=== PATIENT | female | born 1945 | race Caucasian/White ===

== ENCOUNTER → 2017-01-11 | Outpatient (CLI) | payer OTHER ==
[~2017-01-11] MED LIST: ASPIRIN325 PO; B COMPLEX-VITA1 EACH PO; CALCIUM 500 +1 EAC5 PO; COLACE100 MG PO; FISH OIL 1,4001 EACH PO; IBUPROFEN 200200 M1; MAGNESIUM400 MG PO; PREDNISONE 10 M10 M1 PO; PRINZIDE 20-121 EACH PO; SIMVASTATIN40 MG PO; TOPROL XL25 MG PO; TRIAMTERENE-HC1 EAC1 PO; TUMS; VALIUM10 MG PO; VITAMIN C120 GM PO; VITAMIN D1000 UNI1 PO
--- NOTE | ~2017-01-11 | MCT ---
[facility] [place] [address] [place] [address] METHACHOLINE CHALLENGE TEST Name: KYARA WALTON Room #: REG RA Osullivan#: [id number] Admission: 01/11/17 Attend Phys: Junaid Mayfield MD Discharge: Date of : 47 Report #: [id number] THIS REPORT FOR: //name// COPIES FOR: AGE: 71 SEX/RACE: F/C Height: 66 in Exam Date: 01/11/17 Weight: 160 lbs BTPS: X >> PRE BRONCHODILATOR: PREDICTED BEST %PRED FORCED VITAL CAPACITY (FRC) 3.08 L 3.37 LPM 109 % FORCED EXP VOL/SEC (FEV1) 2.43 L 2.48 FEV/FVC 102 % MAX MID-EXP FLOW (FEF 25-75) 2.47 L/SEC 2.06 L/SEC 83 % PEAK EXP FLOW RATE (FEF MAX) 5.73 L/MIN 5.59 L/MIN MED-VC RATIO (FEF 50/FEF 50) .09 98 Baseline: Phenol Saline Level 1: 0.025 mg/ml BEST %PRED %CHANGE BEST %PRED %CHANGE FVC 3.51 L 114 % 4 % FVC 3.45 L 112 % -2 % FEV1 2.51 L 103 % 1 % FEV1 2.52 L 104 % 1 % Level 2: 0.25 mg/ml Level 3: 2.5 mg/ml BEST %PRED %CHANGE BEST %PRED %CHANGE FVC 3.59 L 117 % 2 % FVC 3.38 L 110 % -4 % FEV1 2.57 L 106 % 2 % FEV1 2.34 L 96 % -7 % . Level 4: 10 mg/ml Level 5: 25 mg/ml BEST %PRED %CHANGE BEST %PRED %CHANGE FVC 3.50 L 113 % -0 % FVC 3.37 L 109 % -4 % FEV1 2.43 L 100 % -3 % FEV1 2.41 L 99 % -4 % Post Bronchodilator: 1st Treatment Post Bronchodilator: 2nd Treatment BEST %PRED %CHANGE BEST %PRED %CHANGE FVC 3.44 L 112 % -2 % FVC L % % FEV1 2.47 L 102 % -2 % FEV1 L % % Post Bronchodilator: 3rd Treatment BEST %PRED %CHANGE [facility] [address] [place] [address] METHACHOLINE CHALLENGE TEST Name: KYARA WALTON Room #: REG [facility].#: [id number] Admission: 01/11/17 Attend Phys: Junaid Mayfield MD Discharge: Date of : 46 Report #: [id number] FVC L % % FEV1 L % % >> INTERPRETATION: CC: America Mayfield MD AMENDED REPORT - SEE BELOW METHACHOLINE CHALLENGE TEST IMPRESSION: Negative, never reaching PC20. AMENDED - 01/18/17 REPORT ORIGINALLY E.SIGNED - 01/16/17 @ 1100 Report was edited to add pulmonary values. <ELECTRONICALLY SIGNED> By: Eliel Sinclair MD 01/20/17 1359 Eliel Sinclair MD /nt
== END ==
LOC: PUL 10:07
DX: R53.83 Other fatigue (principal); R06.00 Dyspnea, unspecified

== ENCOUNTER → 2018-08-29 | Outpatient (CLI) | payer OTHER ==
[~2018-08-29] VITALS: Ht 167.6 cm; Wt 72.6 kg
[~2018-08-29] MED LIST changes: +APAP650 PO; +DICLOFENAC POTA50 MG PO; +LISINOPRIL20 MG PO; +NAPROSYN500 MG PO; +NORVASC5 MG PO; +SPIRIVA INH; +TURMERIC 500 M1 EACH PO; +VENTOLIN HFA 1818 GM INH; +ZETIA10 MG PO; +ZOLOFT50 MG PO
--- NOTE | ~2018-08-29 | HPC ---
[facility] [place] [address] PAIN MANAGEMENT CONSULTATION Name: KYARA WALTON Room #: REG [facility].#: [id number] Admission: 08/29/18 Attend Phys: Roland Coto DO Discharge: Date of : 46 Report #: [id number] THIS REPORT FOR: //name// CC: Roland Villegas DATE OF SERVICE: 08/29/2018 REFERRING PHYSICIAN: Dr. Vijay Villegas. CHIEF COMPLAINT: Cervicalgia. HISTORY OF PRESENT ILLNESS: As you know, the patient is a 73-year-old female who has been suffering from chronic neck pain that began earlier in 2018 and progressively worsened. She sought evaluation through her primary care physician, Dr. Vijay Villegas who sent her for x-ray imaging. X-ray imaging showed some arthritic changes in the cervical spine and she was afraid she was suffering from spinal stenosis of the cervical region and sent to our clinic. The patient has neck pain, but no radiation of symptoms from the cervical region. She has discrete numbness and tingling that begins at the wrist and radiates into both hands, more indicative of carpal tunnel. She was sent to our clinic. Discussed the possibility of interventional treatments. Today, the patient indicates pain is continuous, steady and constant, describes the pain as aching, sharp, numbness and tingling and tender, places current pain score 5/10, daily average of 5-6/10, worst pain has been is 6/10. The patient states that turning her head exacerbates her neck pain with no radiation of symptoms to the shoulders or the upper extremities. Driving also exacerbates neck pain. She states that pain is elicited with use of her right and left upper extremity, specifically the hands for both gross and fine motor movement. She states that naproxen, Tylenol and decreasing mobility and repetitive motion tends to improve pain. She has been referred to our service for evaluation. PAST MEDICAL HISTORY: 1. Hypertension. 2. Severe COPD requiring pulmonary rehabilitation. 3. Degenerative joint disease. 4. Osteoarthritis. 5. Depression. 6. Dyslipidemia. 7. Anxiety disorder. PAST SURGICAL HISTORY: Excision of basal cell carcinoma from the nose. [facility] [address] [place] [address] PAIN MANAGEMENT CONSULTATION Name: KYARA WALTON Room #: REG [facility]#: [id number] Admission: 08/29/18 Attend Phys: Roland Coto DO Discharge: Date of : 46 Report #: [id number] SOCIAL HISTORY: The patient reports herself a nonsmoker. Denies IV or illicit drug use. Admits to 2 alcohol beverages per day. 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 She is not color worker's compensation nor is she trying to obtain disability benefits. She is unaccompanied at today's visit. REVIEW OF SYSTEMS: Positive for fatigue and weakness, wearing corrective eyewear, cataracts, hearing loss with tinnitus, shortness of breath with walking or lying flat, numbness and tingling sensations, depression, heat and cold intolerance, bleeding and bruising tendencies, neck pain, bilateral hand pain. All other review of systems negative per 12-point review of systems other than those listed in the history of present illness. Pain impact score 26/70 indicating mild to moderate interference of daily activities secondary to pain. ALLERGIES: HYDROCODONE AND ACETAMINOPHEN. CURRENT MEDICATIONS: Turmeric extract 500 mg once a day, acetaminophen 650 mg twice a day, naproxen 500 mg twice a day, sertraline 50 mg once a day, lisinopril 20 mg 2 tabs per day, amlodipine 5 mg once a day, Zetia 10 mg once a day, albuterol 2 puffs q. 4 hours p.r.n. wheezing, ipratropium bromide once a day, aspirin 325 mg per day, omega-3 fish oil 1 tab per day, vitamin B complex 1 tab per day, metoprolol 25 mg per day, diazepam 10 mg at bedtime. IMAGING: X-ray of the cervical spine shows C2-C3 unremarkable, C3-C4 intervertebral disk space and endplates are normal, moderate facet arthropathy, moderate left neural foraminal encroachment. C4-C5, mild disk space narrowing, facet arthropathy, mild bilateral neural foraminal narrowing. C5-C6, moderate intervertebral disk space narrowing, moderate facet arthritis, moderate bilateral neural foraminal narrowing. C5-C6, moderate intervertebral disk space narrowing, facet arthropathy noted that is mild, mild to moderate foraminal narrowing, left greater than right. C7-T1 unremarkable. PQRS: The patient has known osteoarthritis of the cervical spine. She does not have rheumatoid arthritis. She is placing pain intensity 5/10. She is not a fall risk, does not have a fall in the last 3 months. She is not on blood thinners. She is treated for hypertension. She is not on opioids. She has a low opioid addiction potential. Pain impact score indicated as 27/70. PHYSICAL EXAMINATION: VITAL SIGNS: Blood pressure 130/73, pulse 71, respiratory rate 16 and unlabored. The patient is 100% on room air. Height 5 feet 6 inches tall, weight 160 pounds, BMI calculated 25.8. GENERAL: Well-developed, well-nourished, well-hydrated 73-year-old female appearing stated age, placing current pain score around 5/10. [facility] [address] [place] [address] PAIN MANAGEMENT CONSULTATION Name: KYARA WALTON Room #: REG RA Abran#: [id number] Admission: 08/29/18 Attend Phys: Roland Coto DO Discharge: Date of : 46 Report #: [id number] HEENT: Normocephalic, atraumatic. Pupils equal, round, reactive to light. Extraocular muscles are intact. Sclerae nonicteric without injection. NEUROLOGIC: Cranial nerves 2 through 12 grossly intact. Speech is fluent. The patient deemed a fair historian. LUNGS: Decreased breath sounds bilaterally. There is a prolonged expiratory phase. CARDIOVASCULAR: Regular. No appreciable gallop, no rub. ABDOMEN: Soft, nontender, nondistended, normoactive bowel sounds. EXTREMITIES: Show no clubbing, no cyanosis, no edema. MUSCULOSKELETAL: There is some palpatory tenderness noted over the paraspinal musculature of the cervical spine, no spinous process tenderness. Cervical rotation, lateral flexion cause intensification of neck pain, no radiation of symptoms. Spurling test negative. Upper extremity strength is symmetrical 5/5, intact to light touch from C5 through T1 dermatomes with the exception of the bilateral hands over the first, second, third and fourth digits bilaterally with reduction of tactile sensation. Plug Stitcher strength appears normal in both hands. Muscle bulk and tone equal and symmetrical in upper extremities. Deep tendon reflexes are symmetrical biceps, brachialis and triceps. Tinel's sign is strongly positive bilaterally. Phalen's sign mildly strong bilaterally. ASSESSMENT: 1. Cervical spondylosis without radiculopathy. 2. Myofascial pain of the cervical spine. 3. Cervicalgia. 4. Bilateral carpal tunnel syndrome. PLAN: 1. Based on today's physical exam and history the patient has provided, the description the patient uses in regards to pain as well as the lack of any radiation of symptoms from the cervical region and only discrete tenderness to palpation in the cervical spine, the likely source of the patient's neck pain is facet arthropathy. The x-ray findings do show some arthritic changes, which correlate with the patient's current pain around the C5-C6, C6-C7 level. The patient's provocating testing shows cervical facet degenerative pain, but no radicular component. She was advised that she has cervical spinal stenosis, though this cannot be determined on an x-ray image. There is some neural foraminal encroachment that may be leading to some neural foraminal stenosis, though to determine if the patient is suffering from any cervical spinal stenosis, imaging of either CT or MRI would be necessary. We did discuss with the patient the treatment options for her cervicalgia secondary to facet arthropathy, and the following was discussed. We discussed physical therapy, stretching exercises and traction techniques. This has not been trialed by the patient, and I recommended strongly before moving on with more aggressive treatment options. We discussed medication management adding a nonsteroidal anti-inflammatory for improvement in symptoms. [address] [address] PAIN MANAGEMENT CONSULTATION Name: KYARA WALTON Room #: REG RA Osullivan#: [id number] Admission: 08/29/18 Attend Phys: Roland Coto DO Discharge: Date of : 46 Report #: [id number] This in conjunction with physical therapy would be quite beneficial. We discussed more aggressive treatment options such as intra-articular facet injections, which will provide only transient improvement in symptoms and we discussed radiofrequency lesioning of the medial branch nerves of the cervical spine, which is not offered through [facility]. After reviewing the risks and benefits of all proposed treatment options, the patient chose nonsteroidal anti-inflammatory and physical therapy. 2. The patient was provided a prescription of diclofenac 50 mg dose 1 tab p.o. t.i.d. with meals, I have given the patient #90. She is to discontinue naproxen in preference to this diclofenac. We wish to determine if her symptoms might see improvement with rotating a nonsteroidal anti-inflammatory. She has been on naproxen for an extended period of time. The patient will be sent for physical therapy twice a week for 6 weeks. We have requested typical cervical physical therapy in conjunction with traction, heat and cold compresses, ultrasound therapy to improve neck discomfort. She can begin this as quickly as possible. 3. We did discuss possibility of having the patient undergo MRI of the cervical spine. We will trial conservative treatment options first. If this does not prove to provide good benefit, further imaging might be necessary and I would recommend a cervical MRI as this will provide us with information about the central canal and neural foraminal areas. 4. Bilateral hand pain, appears to be related to bilateral carpal tunnel syndrome. There is no radicular component to the patient's cervical symptoms and the findings on her x-ray do not correlate with the distribution in her hands. The distribution is from the wrist into the hands specifically. She has strongly positive Tinel's sign and mildly positive Phalen's sign indicative of carpal tunnel syndrome. The fact that her distribution does not involve the thumb would be most indicative of a noncervical radicular origin and thus would further confirm bilateral carpal tunnel syndrome. We discussed the treatment options for this today including decreasing repetitive motion, utilize cock-up splints on a nightly basis bilaterally. We discussed carpal tunnel release surgery. After reviewing risks and benefits of all the proposed treatment options, the patient chose to remain conservative and wishes to trial reducing gross and fine motor movements as much as possible initially to see if improvement can occur and then utilizing a cock-up splint on the evening basis. If this is ineffective, then she will consider options for surgery. 5. We will see the patient back in followup visit after she has completed physical therapy for her cervical region. We will see her back and discuss the carpal tunnel syndrome further if she wishes to do so. We wish to thank Dr. Villegas for the referral of this patient to our clinic. We will keep you apprised of her response to treatment as we address her cervicalgia secondary to facet arthropathy of cervical spine and her carpal [address] [address] PAIN MANAGEMENT CONSULTATION Name: KYARA WALTON Room #: REG [facility].#: [id number] Admission: 08/29/18 Attend Phys: Roland Coto DO Discharge: Date of : 46 Report #: [id number] tunnel syndrome. Again, we wish to thank you for the opportunity to see the patient in consultation. <ELECTRONICALLY SIGNED> By: Roland Coto DO 09/05/18 1059 [id number] Roland Coto DO /nt
[2018-08-29 11:11] VITALS: BP 130/73
== END ==
LOC: PAIN 06:51
DX: M47.812 Spondylosis without myelopathy or radiculopathy, cervical region (principal); M79.18 Myalgia, other site; G56.03 Carpal tunnel syndrome, bilateral upper limbs; Z79.899 Other long term (current) drug therapy

== ENCOUNTER → 2018-09-26 | Outpatient (CLI) | payer OTHER ==
[~2018-09-26] VITALS: Ht 167.6 cm; Wt 75.1 kg
[~2018-09-26] MED LIST changes: +SPIRIVA RESPIMAT4 GM
--- NOTE | ~2018-09-26 | HPC ---
[facility] [place] [address] [place] [address] PAIN MANAGEMENT CONSULTATION Name: KYARA WALTON Room #: REG [facility].#: [id number] Admission: 09/26/18 Attend Phys: Roland Coto DO Discharge: Date of : 46 Report #: [id number] THIS REPORT FOR: //name// CC: Roland Villegas MD DATE OF SERVICE: 09/26/2018 CHIEF COMPLAINT: Cervicalgia. HISTORY OF PRESENT ILLNESS: As you know, the patient is a 73-year-old female who has been suffering from chronic neck pain began early 2017 and progressively worsened. She was evaluated by her primary care physician, Dr. Vijay Villegas, referred to our clinic to discuss treatment options for cervicalgia. She was seen per the request of Dr. Vijay Villegas on 08/29/2018. At that time, diagnosed with cervical spondylosis without radiculopathy, myofascial pain of the cervical spine, cervicalgia and bilateral carpal tunnel syndrome. At that visit, we discussed multiple treatment options including physical therapy, medication management changes, utilizing a consistent nonsteroidal anti-inflammatory to address facet arthropathy pain. We discussed intra-articular injections and radiofrequency lesioning of the cervical spine, which is not offered by our services. After reviewing the risks and benefits of all proposed treatment options, the patient chose to begin with medication management. She returns today in followup visit reporting pain score of about 2-3/10. She is extremely pleased with response to medication, returning today for refills of therapy. She is denying side effects of dyspepsia, worsening blood pressure, lower extremity edema with the use of the diclofenac. She returns requesting refill for the next 3 months as she is finding good benefit with its use. She does indicate that she has not initiated the use of the cock-up splints for her carpal tunnel, though I recommended strongly ALLERGIES: HYDROCODONE/ACETAMINOPHEN. CURRENT MEDICATIONS: Spiriva 1 puff b.i.d., diclofenac 50 mg 3 times a day, turmeric 500 mg once a day, acetaminophen 650 mg q.12h., sertraline 50 mg per day, lisinopril 20 mg per day, amlodipine 5 mg p.o. at bedtime, Zetia 10 mg per day, albuterol 2 puffs q.4h. p.r.n., aspirin 325 mg per day, omega-3 fish oil 1 tab per day, vitamin B complex 1 tab per day, metoprolol 25 mg once a day, diazepam 10 mg p.o. at bedtime. SOCIAL HISTORY: The patient reports herself a nonsmoker. Denies IV or illicit drug use. Admits to 2 alcohol beverages per day. 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 [address] PAIN MANAGEMENT CONSULTATION Name: KYARA WALTON Room #: REG [facility].#: [id number] Admission: 09/26/18 Attend Phys: Roland Coto DO Discharge: Date of : 46 Report #: [id number] IMAGING: There is no new imaging available. PQRS: The patient has osteoarthritis of cervical spine, no rheumatoid arthritis. She is placing pain intensity day 2-3/10, not a fall risk, has not had a fall in the last 3 months. She is not on blood thinners. She is treated for hypertension. She is not on opioids and has a low opioid addiction potential. Pain impact score reporting 21 of 70, mild interference of daily activities secondary to pain. PHYSICAL EXAMINATION: VITAL SIGNS: Blood pressure 132/67, pulse 76, respiratory rate 14 and unlabored. The patient is 100% on room air. Height 5 feet 6 inches tall, weight 165.6 pounds, BMI calculated 26.7. GENERAL: Well-developed, well-nourished, well-hydrated 73-year-old female appearing stated age, pain is rated around 2-3/10. HEENT: Normocephalic, atraumatic. Pupils equal, round, reactive to light. Extraocular muscles are intact. EXTREMITIES: Show no clubbing, no cyanosis, no edema. MUSCULOSKELETAL: The patient remains tender to palpation over the paraspinal musculature of cervical spine, no spinous process tenderness. Cervical rotation, lateral flexion intensifies neck pain, no radiation of symptoms with extension. Spurling's test negative. ASSESSMENT: 1. Cervical spondylosis without radiculopathy. 2. Myofascial pain, cervical spine. 3. Cervicalgia. 4. Bilateral carpal tunnel syndrome. PLAN: 1. The patient returns today in followup visit indicating that she has not initiated treatment with the cock-up splints recommended at last visit. She states she has purchased these splints, but has not begun to use them. This is the most conservative and one of the most effective treatment options for mild carpal tunnel syndrome for which the patient is experiencing. Recommend strongly she initiate the therapy. Certainly, referrals to physical therapy can be made either through her PCP or through our services, though I do not feel these are necessary. At this time, cock-up splints would be most appropriate. The patient can discuss the carpal tunnel syndrome that she is experiencing with her current physical therapy professional addressing her cervicalgia. 2. In regards to the patient's cervicalgia, she is doing well with diclofenac and physical therapy. At this point, no interventions are necessary. We recommend she remain on the diclofenac 50 mg t.i.d. She can follow up with the PCP for continuation of this treatment. 3. The patient was provided a prescription of diclofenac potassium 50 mg dose 1 tab p.o. t.i.d., #90 with 2 refills, 3 months' worth of medication. She can [facility] [address] [place] [address] PAIN MANAGEMENT CONSULTATION Name: KYARA WALTON Room #: REG [facility]#: [id number] Admission: 09/26/18 Attend Phys: Roland Coto DO Discharge: Date of : 47 Report #: [id number] again follow up with PCP or her presser and blocker knitted goods for continuation of this treatment. 4. If the patient is looking to move forward with interventional treatments, we have recommended that she contact her referring physician to be referred to a facility that offers radiofrequency lesioning of the medial branch nerves of the cervical spine. I believe if her symptoms do continue to worsen that this would be the most appropriate option for treatment. 5. We will see the patient back in followup visit on an as needed basis. Pleased to see the patient is doing well. We will see her back if necessary. By: [id number] Roland Coto, DO /nt
[2018-09-26 10:11] VITALS: BP 132/67
== END ==
LOC: PAIN 07:12
DX: M54.2 Cervicalgia (principal); M54.5 Low back pain; M79.602 Pain in left arm; M79.601 Pain in right arm; Z79.899 Other long term (current) drug therapy; Z72.89 Other problems related to lifestyle

== ENCOUNTER → 2019-02-04 | Outpatient (CLI) | payer OTHER | LOC: RAD 11:54 | DX: J44.9 Chronic obstructive pulmonary disease, unspecified (principal); M51.34 Other intervertebral disc degeneration, thoracic region ==

== ENCOUNTER → 2019-09-24 | Outpatient (CLI) | payer OTHER ==
[~2019-09-24] VITALS: Ht 165.1 cm; Wt 77.1 kg
[~2019-09-24] MED LIST changes: +ANORO ELLIPTA1 EACH INH; +BENADRYL25 MG PO; +FLUZONE HI180 MCG/06 IM; +NEURONTIN 300300 M1 PO; +SUPER THERAVIT1 EACH PO
[2019-09-24 13:14] VITALS: BP 144/69
--- NOTE | 2019-09-24 13:35 | NUR ---
Pain Clinic Assessment: 1. History of Osteoarthritis: Left Lower Extremity Right Lower Extremity History of Rheumatoid Arthritis: 2. Height: 5 ft. 5 in. 165.1 cm. Weight: 170.0 lb. oz. 77.112 kg. Patient's BMI: 28.3 3. Vital Signs: BP: 144/69 Pulse: 75 Resp: 16 Temp: 02 Sat: 98 ECG Mon: 4. Pain Intensity: 2-3 5. Fall Risk: Dizziness: Y Needs help standing or walking: N Fallen in the last 3 months: N Fall risk comments: 6. Patient on Blood Thinner: None 7. History of Hypertension: Y 8. Opioid Therapy greater than 6 weeks: N Opiate Contract Signed: 9. Risk Assessment Tool Provided: 10. Functional Assessment Tool: 11. Recreational Drug Use: Never Drug Type: Tobacco Use: Never Smoker Tobacco Type: Amount or Packs/day: How Many Years: Alcohol Use: Yes Frequency: Daily Quant: 2
--- NOTE | 2019-10-01 13:04 | HPC ---
[facility] [place] [address] PAIN MANAGEMENT CONSULTATION Name: KYARA WALTON Room #: REG [facility]#: [id number] Admission: 09/24/19 Attend Phys: Roland Coto DO Discharge: Date of : 47 Report #: [id number] THIS REPORT FOR: //name// CC: Roland Villegas MD DATE OF SERVICE: 09/24/2019 CHIEF COMPLAINT: Low back pain, bilateral lower extremity pain with paresthesias. HISTORY OF PRESENT ILLNESS: As you know, the patient is a very pleasant 74-year-old female who returns today in followup visit per the request of her primary care physician, Dr. Vijay Villegas for evaluation for low back pain, bilateral lower extremity pain. The patient reports that Dr. Villegas contacted her and indicated that she had some minor changes in the lumbar spine at several levels causing mild nerve root impingement. She was referred back to our clinic to discuss treatment options based on these reports. She indicates today pain is periodic, aching, and tender. She describes the pain as exacerbated with standing and bending, improves with sitting and lying down. She is placing pain today around 2-3/10. She returns today with a new MRI dated 09/11/2019, which shows severe central canal stenosis at L3-L4 and L4-L5 with central canal measuring only 6 mm at the L3-L4 level and 5-6 mm at the L4-L5 level. This would correlate with the patient's bilateral lower extremity pain with paresthesias. She has been referred to our clinic to discuss treatment options based on these findings. ALLERGIES: HYDROCODONE, ACETAMINOPHEN. CURRENT MEDICATIONS: Anoro Ellipta 1 puff each day, Benadryl 25 mg p.o. at bedtime, multivitamin 1 tab per day, albuterol 2 puffs q. 4 hours p.r.n., turmeric root extract 500 mg once a day, sertraline 50 mg per day, lisinopril 20 mg 2 tabs per day, amlodipine 5 mg per day, Zetia 10 mg per day, metoprolol 25 mg once a day, diazepam 10 mg p.o. at bedtime. SOCIAL HISTORY: The patient reports herself a nonsmoker. Denies IV or illicit drug use. Admits to 2 alcoholic beverages per day. 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 IMAGING: MRI lumbar spine 09/11/2019 shows L1-L2 unremarkable, L2-L3 has some facet arthropathy, triangulation of the thecal sacs present due to diffuse bulging disk and facet hypertrophy causing a reduction of the canal to 6-7 mm. Mild foraminal stenosis. L3-L4 shows minimal diffuse disk bulge, ligamentum flavum hypertrophy and facet arthropathy. This reduces thecal sac to severe [address] [address] PAIN MANAGEMENT CONSULTATION Name: KYARA WALTON Room #: REG [facility].#: [id number] Admission: 09/24/19 Attend Phys: Roland Coto DO Discharge: Date of : 47 Report #: [id number] levels of 6 mm. Right foraminal area is patent, left mild foraminal stenosis. L4-L5 facet and ligamentum flavum hypertrophy, diffuse annular bulge reducing the thecal sac to 5-6 mm, severe central canal stenosis, foraminal stenosis L5-S1, facet and ligamentum flavum hypertrophy, minimal diffuse disk bulge, canal measures 10 mm. PQRS: The patient has known arthritic changes of the bilateral hips and bilateral knees, no rheumatoid arthritis. She also shows arthritic changes of the lumbar spine. She is placing pain intensity 2-3/10. She is not a fall risk, has not had a fall in last 3 months. She is not on blood thinners, but is treated for hypertension. She is not on chronic opioids and has a low opioid addiction potential. Pain impact score is a 45/70, ocaapden-lo-[id number] interference of daily activities secondary to pain. PHYSICAL EXAMINATION: VITAL SIGNS: Blood pressure 144/69, pulse 75, respiratory rate 16 and unlabored. The patient is 98% on room air. Height 5 feet 5 inches tall, weight 170 pounds, BMI calculated 28.3. GENERAL: Well-developed, well-nourished, well-hydrated 74-year-old female appearing stated age, pain is rated at 2-3/10. HEENT: Normocephalic, atraumatic. Pupils equal, round, reactive to light. Extraocular muscles are intact. Sclerae nonicteric without injection. EXTREMITIES: Show no clubbing, no cyanosis, and no edema. MUSCULOSKELETAL: Lower extremity strength appears symmetrical 5/5. Muscle bulk and tone is equal and symmetrical in comparing left lower extremity to right. Seated straight leg raising negative. Supine straight leg raising positive. Jose's test is negative. Modified Gaenslen's positive for axial low back pain. Ankle clonus negative. Babinski is negative. Gait is mildly antalgic, appearing to favor the right lower extremity over left. ASSESSMENT: 1. Symptomatic lumbar radiculopathy. 2. Severe central canal stenosis of lumbar spine. 3. Displacement of lumbar intervertebral disk with radiculopathy. 4. Lumbosacral spondylosis with radiculopathy. 5. Facet arthropathy of the lumbar spine. 6. Neural foraminal stenosis of lumbar spine. 7. Lumbar degeneration. 8. Chronic intractable pain. PLAN: 1. The patient has been referred back to our clinic per request of Dr. Villegas to discuss treatment options for lumbar radiculopathy. It appears the patient is suffering from severe central canal stenosis at multiple levels L2-L3, L3-L4 and to a greater degree L4-L5. The patient's symptoms do correlate with central canal stenosis. We discussed with the patient treatment options based on the [address] [address] PAIN MANAGEMENT CONSULTATION Name: KYARA WALTON Room #: REG [facility].#: [id number] Admission: 09/24/19 Attend Phys: Roland Coto DO Discharge: Date of : 47 Report #: [id number] findings of her MRI, the following was discussed with the patient for treatment course. We discussed physical therapy, stretching exercise, core strengthening and concerted effort at weight loss. We discussed medication management utilizing neuropathic pain medications and anti-inflammatory medications. We discussed epidural injections under fluoroscopic guidance to address the inflammatory process that is likely promoting the patient's overall pain. We also discussed a spinal cord stimulator therapy and ultimately surgical decompression. After reviewing risks and benefits of all proposed treatment options, the patient chose to make adjustments in medication management. 2. We spent over 18 minutes of the time today during the evaluation, discussing the patient's MRI and how it correlates to the findings from a physical exam standpoint and from her subjective reports. It does appear the patient is suffering from central canal stenosis, the most significant at the L4-L5 level. The patient has a greater understanding of the pathology that exists in her back to make a better decision processes. We reviewed the patient's MRI, not only with the report from the radiologist, but also imaging from that radiologic evaluation and mottling to describe to the patient the findings therein. 3. The patient will be started on gabapentin 300 mg dose. We are planning to take the patient on a rapid escalation of the medication in hopes of improving neuropathic pain. She will start at 1 tab p.o. at bedtime for 5 nights, then increase to 2 tabs p.o. at bedtime for 5 nights, then 3 tabs p.o. at bedtime for 5 nights. If no side effects such as sleepiness, disorientation, confusion, mental slowing and no improvement in symptoms during this rapid titration, then begin 1 tab in the morning, continuing 3 tabs at night, reaching 3 tabs in the morning and 3 tabs at night or a total of 900 mg b.i.d. The patient was given #180 tablets to titrate. The patient was advised when she reaches an efficacious level, she is to stabilize at that dose as long as there are no side effects. She will contact our clinic with any questions or concerns. She was given the titration in written form today. 4. We will see the patient back in followup visit in approximately 1 month. At that time, review the efficacy of the medication changes made today and discuss other treatment options if necessary. <ELECTRONICALLY SIGNED> By: Roland Coto DO 10/01/19 1304 [id number] Roland Coto DO /nt
== END ==
LOC: PAIN 06:51
DX: M48.062 Spinal stenosis, lumbar region with neurogenic claudication (principal); M51.16 Intervertebral disc disorders with radiculopathy, lumbar region; M47.27 Other spondylosis with radiculopathy, lumbosacral region; M12.88 Other specific arthropathies, not elsewhere classified, other specified site; G89.4 Chronic pain syndrome

== ENCOUNTER 2020-02-13 12:31 | Observation (INO) | payer OTHER ==
[~2020-02-13] VITALS: Ht 165.1 cm; Wt 79.4 kg
[2020-02-13 12:33] VITALS: BP 157/72
--- NOTE | 2020-02-13 13:20 | EKG ---
[facility] [place] [address] ELECTROCARDIOGRAM REPORT Name: KYARA WALTON Room #: [facility]#: [id number] Admission: Attend Phys: Discharge: Date of : 46 Report #: [id number] THIS REPORT FOR: cc: Jhonny Carroll MD ~ THIS REPORT FOR: //name// [facility] ED Test Date: 2020-02-13 Test Time: 13:11:56 Pat Name: KYARA WALTON Department: Room: Gender: F Shop Director: : 1945 Requested By: Amanda Barkley Order Number: [id number] MD: Jhonny Carroll Measurements Intervals [place] Rate: 82 P: 61 MI: 172 QRS: 6 QRSD: 94 T: 9 QT: 370 QTc: 432 Interpretive Statements Sinus rhythm Low voltage, precordial leads Borderline T abnormalities, anterior leads Baseline wander in lead(s) V2 Compared to ECG 09/14/2012 10:59:52 Low QRS voltage now present T-wave abnormality now present ST (T wave) deviation no longer present Possible ischemia no longer present Electronically Signed On 02-13-2020 13:19:11 CDT by Jhonny Carroll [email or web address] <ELECTRONICALLY SIGNED> By: Jhonny Carroll MD 02/13/20 1319 131 10 Jhonny Carroll MD /EPI
[2020-02-13 13:36] LABS: BASOPHILS 0.4 % (0.0-2.0); EOSINOPHILS 0.6 % (0.0-3.0); HEMATOCRIT 37.2 % (37.0-47.0); HEMOGLOBIN 12.9 gm/dL (12.0-15.0); LYMPHOCYTES 13.3 % (24.0-44.0); MCH 32.3 pg (26.0-34.0); MCHC 34.5 g/dL (28.0-37.0); MCV 93.6 fL (80.0-100.0); MONOCYTES 6.4 % (1.0-8.0); PLATELET COUNT 172 thou/uL (150-400); POLYS 79.3 % (36.0-66.0); RBC 3.98 mil/uL (4.20-5.00); RDW 13.6 % (10.5-14.5); WBC 7.5 thou/uL (4.0-11.0)
[2020-02-13 13:39] LABS: CREATININE 0.9 mg/dL (0.6-1.0)
[2020-02-13 13:44] LABS: POTASSIUM 4.2 mmol/L (3.5-5.1)
[2020-02-13 13:45] LABS: ALBUMIN 3.3 g/dL (3.4-5.0); TOTAL BILIRUBIN 0.9 mg/dL (<0.1-1.0); TOTAL PROTEIN 6.5 g/dL (6.4-8.2)
[2020-02-13 15:29] VITALS: BP 166/69
[2020-02-13] MEDS ORDERED: OXYCODONE HCL 55 MG PO (16:28)
[2020-02-13] MEDS ORDERED: COLACE 100 MG100 MG PO (16:29)
[2020-02-13] MEDS ORDERED: MIRALAX17 GM PO (16:29)
[2020-02-13 17:21] VITALS: BP 166/69
== END 2020-02-13 18:10 | disposition home or self-care (01) ==
LOC: ER 12:31 → TBA 15:29
PROVIDERS: Emergency Medicine; Physician Assistant; ADMIT Surgery
DX: K35.80 Unspecified acute appendicitis (principal); J44.9 Chronic obstructive pulmonary disease, unspecified; Z85.828 Personal history of other malignant neoplasm of skin; Z87.891 Personal history of nicotine dependence
CPT/HCPCS: 50010; 50101; 50249; 50411; 50555; 50558; 50739; 50740; 51489; 52265; 53307; 53310; 53312; 54022; 54118; 56525; 56526; 70005

== ENCOUNTER → 2021-04-07 | Outpatient (CLI) | payer OTHER ==
[~2021-04-07] VITALS: Ht 165.1 cm; Wt 78.0 kg
[~2021-04-07] MED LIST changes: +B COMPLEX1 EACH PO; +COLACE 100 MG100 MG PO; +EZETIMIBE10 MG PO; +MIRALAX17 GM PO; +OXYCODONE HCL 55 MG PO; +TYLENOL PM EX-1 EACH PO; +WELLBUTRIN SR150 MG PO
[2021-04-07 09:24] VITALS: BP 155/84
--- NOTE | 2021-04-07 09:33 | NUR ---
Pain Clinic Assessment: 1. History of Osteoarthritis: Left Lower Extremity Right Lower Extremity History of Rheumatoid Arthritis: Not Applicable 2. Height: 5 ft. 5 in. 165.1 cm. Weight: 172.0 lb. oz. 78.019 kg. Patient's BMI: 28.6 3. Vital Signs: BP: 155/84 Pulse: 92 Resp: 16 Temp: 02 Sat: 07 ECG Mon: 4. Pain Intensity: 7 5. Fall Risk: Dizziness: N Needs help standing or walking: N Fallen in the last 3 months: Y Fall risk comments: 6. Patient on Blood Thinner: None 7. History of Hypertension: Y 8. Opioid Therapy greater than 6 weeks: N Opiate Contract Signed: 9. Risk Assessment Tool Provided: LOW-1 10. Functional Assessment Tool: 50/70 11. Recreational Drug Use: Never Drug Type: Tobacco Use: Never Smoker Tobacco Type: Amount or Packs/day: How Many Years: Alcohol Use: Yes Frequency: Daily Quant: 2
--- NOTE | 2021-04-14 08:22 | HPC ---
[facility] [place] [address] PAIN MANAGEMENT CONSULTATION Name: KYARA WALTON Room #: REG [facility].#: [id number] Admission: 04/07/21 Attend Phys: Roland Coto DO Discharge: Date of : 47 Report #: [id number] THIS REPORT FOR: cc: America Mariscal MD, Jennifer S. MD Johnson, James E. DO ~ DOC #: [id number] cc: America Mariscal MD, MD Roland Wilkes DO DATE OF SERVICE: 04/07/2021 DATE OF SERVICE: 04/07/2021 CHIEF COMPLAINT: Low back pain, bilateral lower extremity pain with paresthesias. HISTORY OF PRESENT ILLNESS: As you know, the patient is a 75-year-old very pleasant female returning in followup visit to undergo lumbar epidural injection under fluoroscopic guidance. The patient, as you are aware, suffers from symptomatic lumbar radiculopathy secondary to severe and progressively worsening central canal stenosis. The patient returns today requesting a lumbar epidural injection under fluoroscopic guidance. She is placing her current pain score at 7/10. States her pain is aching, numbness, tingling in sensation, exacerbated with standing, walking and bending, improves with sitting, lying down, heat or cold compresses and massage. We have trialed the patient on medication management in the past, but unfortunately, this has failed. She returns to undergo lumbar epidural injection under fluoroscopic guidance. ALLERGIES: HYDROCODONE, ACETAMINOPHEN. CURRENT MEDICATIONS: See chart. SOCIAL HISTORY: The patient reports herself a nonsmoker. Denies IV or illicit drug use. Admits to alcohol beverage per day. She is retired, unaccompanied today. IMAGING: No new imaging available. PQRS: The patient has known arthritic changes of bilateral hips, lumbar spine, and bilateral knees. No rheumatoid arthritis. She is placing current pain intensity at 7/10. She is not a fall risk, has not had a fall in last 3 months. She is not on blood thinners, but is treated for hypertension. She is not on chronic opioids, has a low opioid addiction potential based on assessment tool. Pain impact remains high. PHYSICAL EXAMINATION: [address] [address] PAIN MANAGEMENT CONSULTATION Name: KYARA WALTON Room #: REG [facility]#: [id number] Admission: 04/07/21 Attend Phys: Roland Coto DO Discharge: Date of : 47 Report #: [id number] VITAL SIGNS: Blood pressure 155/84, pulse is 92, respiratory rate 16 and unlabored. The patient is 97% on room air. Height 5 feet 5 inches tall, weight 172 pounds, BMI calculated 28.6. GENERAL: Well-developed, well-nourished, well-hydrated 75-year-old female appearing stated age. Pain is rated today at 7/10. HEENT: Normocephalic, atraumatic. Pupils equal, round, and responsive. Speech is fluent. The patient is wearing a mask in compliance with COVID-19 regulations. EXTREMITIES: Show no clubbing, no cyanosis. No appreciable edema. MUSCULOSKELETAL: Seated straight leg raising negative. Supine straight leg raising positive. PEPE's test is negative. Modified Gaenslen's positive for axial low back pain. Ankle clonus negative. Babinski is negative. Gait is mildly antalgic favoring right lower extremity over left. Muscle bulk and tone is symmetrical in lower extremities. ASSESSMENT: 1. Symptomatic lumbar radiculopathy. 2. Severe central canal stenosis of lumbar spine. 3. Displacement of lumbar intervertebral disk with radiculopathy. 4. Lumbosacral spondylosis with radiculopathy. 5. Facet arthropathy of the lumbar spine. 6. Neural foraminal stenosis of lumbar spine. 7. Lumbar degeneration. 8. Chronic intractable pain. PLAN: 1. The patient returns today in followup visit with pain level of now 7/10. She is requesting and we will perform a lumbar epidural injection under fluoroscopic guidance. The patient has been advised the risks and benefits of this procedure. These risks include, but are not necessarily limited to, bleeding, bruising, infection, worsening pain, no relief of pain, also risk of temporary or permanent muscle weakness, temporary or permanent nerve damage, possible paralysis, post-dural puncture headache and . The patient states understood and wished to proceed. 2. We plan to see the patient back in followup visit in approximately one month. At that time, review efficacy of today's epidural injection to determine if repeat epidural injection would be recommended. DESCRIPTION OF PROCEDURE: L5-S1 interlaminar epidural steroid injection under fluoroscopic guidance. This is the first procedure of the first series that the patient is undergoing. After obtaining written consent, the patient was taken back to the fluoroscopy suite, placed in a prone position with pillow under the abdomen to decrease lumbar lordosis. The skin overlying the lumbosacral area was then prepped and [address] [address] PAIN MANAGEMENT CONSULTATION Name: KYARA WALTON [facility] [id number] Admission: 04/07/21 Attend Phys: Roland Coto DO Discharge: Date of : 47 Report #: [id number] draped in aseptic fashion. The L5-S1 vertebral interspace was then identified by AP fluoroscopy. The skin and subcutaneous tissue overlying the target site of injection was anesthetized with 3 mL 1% lidocaine. A 20-gauge 3-1/2 inch Tuohy needle was then advanced under fluoroscopic guidance towards the epidural space using a left paramedian approach. The epidural space was identified using loss of resistance to air technique. After negative aspiration for heme or cerebrospinal fluid, a total of 1 mL of Omnipaque was injected. A lumbar epidurogram was confirmed using both AP and lateral fluoroscopy. After negative aspiration for heme or cerebrospinal fluid, 5 mL of a solution containing 2 mL 40 mg per mL 80 mg total triamcinolone along with 3 mL of lidocaine 1% was injected in increments. Contrast spread was noted in the posterior epidural space. The needle was then retracted approximately half way and needle tract flushed with 1 mL of lidocaine. Needle was then removed. There were no apparent sensory or motor deficits in the lower extremity following the procedure. A sterile bandage was placed over the injection site. The heart rate, pulse, oximetry and blood pressure were continuously monitored after the procedure. There were no apparent complications. The patient tolerated the procedure well and was carefully escorted to the recovery room in stable condition. There were no apparent complications. After meeting discharge criteria, the patient was then discharged home. DO ARETHA KennedyJ/LILY <ELECTRONICALLY SIGNED> By: Roland Coto DO 04/14/21 0822 1341 2314 Roland Coto DO /nt
== END | disposition home or self-care (01) ==
LOC: PAIN 09:01
PROVIDERS: ATTEND Anesthesiology Pain Medicine
DX: M51.16 Intervertebral disc disorders with radiculopathy, lumbar region (principal); M47.27 Other spondylosis with radiculopathy, lumbosacral region; M47.26 Other spondylosis with radiculopathy, lumbar region; M48.061 Spinal stenosis, lumbar region without neurogenic claudication; I10 Essential (primary) hypertension; M19.90 Unspecified osteoarthritis, unspecified site; Z79.899 Other long term (current) drug therapy; Z98.890 Other specified postprocedural states; Z88.8 Allergy status to other drugs, medicaments and biological substances